=== PATIENT | male | born 1965 | race American Indian/Alaskan Native ===

== ENCOUNTER 2016-05-10 13:26 | Emergency (ER) | payer SELFPAY ==
[2016-05-10] MEDS ORDERED: TORADOL IM ONE (19:12)
[2016-05-10] MEDS ORDERED: COLCRYS PO ONE (19:12)
--- NOTE | 2016-05-10 19:18 | Emergency Department Report ---
ED Extremity Problem HPI - General Chief complaint: Extremity Injury, Lower Stated complaint: LEFT KNEE GOUT Time Seen by Provider: 05/10/16 19:01 Source: patient Mode of arrival: Wheelchair Limitations: No Limitations - History of Present Illness Initial comments: 51 y/o male complain of eating tuna fish and drinking last week .pt state he now having a gout attack . Onset/Timin -: days(s) Location: left, knee History of Same: Yes Severity scale (0 -10): 5 Quality: aching Consistency: intermittent Improves with: nothing Worsens with: weight bearing, walking - Related Data Previous Rx's Medication Instructions Recorded Last Taken Type Colchicine [Colcrys] 0.6 mg PO DAILY #30 tablet 05/10/16 Unknown Rx Ibuprofen [Motrin] 800 mg PO Q8HR PRN #15 tablet 05/10/16 Unknown Rx Allergies Allergy/AdvReac Type Severity Reaction Status Date / Time No Known Allergies Allergy Unverified 05/10/16 13:48 ED Review of Systems ROS: Stated complaint: LEFT KNEE GOUT Other details as noted in HPI Constitutional: denies: chills, fever Eyes: denies: eye pain, eye discharge, vision change ENT: denies: ear pain, throat pain Respiratory: denies: cough, shortness of breath, wheezing Cardiovascular: denies: chest pain, palpitations Endocrine: no symptoms reported Gastrointestinal: denies: abdominal pain, nausea, diarrhea Genitourinary: denies: urgency, dysuria Musculoskeletal: joint swelling. denies: back pain, arthralgia Skin: denies: rash, lesions Neurological: denies: headache, weakness, paresthesias Psychiatric: denies: anxiety, depression Hematological/Lymphatic: denies: easy bleeding, easy bruising ED Past Medical Hx - Past Medical History Additional medical history: Gout - Social History Smoking Status: Never Smoker Substance Use Type: None - Medications Home Medications: Home Medications Medication Instructions Recorded Confirmed Last Taken Type Colchicine [Colcrys] 0.6 mg PO DAILY #30 tablet 05/10/16 Unknown Rx Ibuprofen [Motrin] 800 mg PO Q8HR PRN #15 tablet 05/10/16 Unknown Rx ED Physical Exam - General Limitations: No Limitations General appearance: alert, in no apparent distress - Head Head exam: Present: atraumatic, normocephalic - Eye Eye exam: Present: normal appearance Pupils: Present: normal accommodation - ENT ENT exam: Present: mucous membranes moist - Neck Neck exam: Present: normal inspection - Respiratory Respiratory exam: Present: normal lung sounds bilaterally. Absent: respiratory distress - Cardiovascular Cardiovascular Exam: Present: regular rate, normal rhythm. Absent: systolic murmur, diastolic murmur, rubs, gallop - GI/Abdominal GI/Abdominal exam: Present: soft, normal bowel sounds - Rectal Rectal exam: Present: deferred - Extremities Exam Extremities exam: Present: normal inspection - Expanded Lower Extremity Exam Left Hip exam: Present: normal inspection, full ROM Upper Leg exam: Present: normal inspection, full ROM Knee exam: Present: tenderness, swelling, full knee extension Lower Leg exam: Present: normal inspection, full ROM Ankle exam: Present: normal inspection, full ROM Foot/Toe exam: Present: normal inspection, full ROM Neuro vascular tendon exam: Present: no vascular compromise Gait: Positive: observed and limited by pain - Back Exam Back exam: Present: normal inspection - Neurological Exam Neurological exam: Present: alert, oriented X3 - Psychiatric Psychiatric exam: Present: normal affect, normal mood - Skin Skin exam: Present: warm, dry, intact, normal color. Absent: rash ED Course Vital Signs 05/10/16 13:46 Temperature 98 F Pulse Rate 84 Respiratory 18 Rate Blood Pressure 125/72 O2 Sat by Pulse 100 Oximetry ED Medical Decision Making - Medical Decision Making left knee pain gout attack Critical care attestation.: If time is entered above; I have spent that time in minutes in the direct care of this critically ill patient, excluding procedure time. ED Disposition Clinical Impression: Gout attack Qualifiers: Gout site: knee Gout etiology: unspecified cause Laterality: left Qualified Code(s): M10.9 - Gout, unspecified Disposition: DISCHARGED TO HOME OR SELFCARE Is pt being admited?: No Does the pt Need Aspirin: No Condition: Stable Instructions: Acute Gouty Arthritis (ED) Prescriptions: Colchicine [Colcrys] 0.6 mg PO DAILY #30 tablet Ibuprofen [Motrin] 800 mg PO Q8HR PRN #15 tablet PRN Reason: Pain
[2016-05-10 19:56] VITALS: BP 122/74
== END 2016-05-10 19:24 | disposition home or self-care (01) ==
LOC: ED 13:26
DX: M10.9 Gout, unspecified (principal)
CPT/HCPCS: 96372; 99282; J1885

== ENCOUNTER 2016-12-21 19:43 | Emergency (ER) | payer BC ==
[2016-12-22] MEDS ORDERED: DECADRON IM ONE (02:08)
--- NOTE | 2016-12-22 02:33 | XRay Report ---
FINAL REPORT PROCEDURE: XR FOOT 3+V RT TECHNIQUE: RIGHT foot radiographs, AP, lateral, and oblique views. CPT 78001 HISTORY: swelling pain RT FOOT COMPARISON: No prior studies are available for comparison. FINDINGS: Fracture (s) and/or Dislocation(s): None . Alignment: Normal . Joint space(s): Mild narrowing of the joint spaces. Mild spur formation off the osseous structures including the tarsal bones.. Soft tissues: Slight diffuse soft tissue swelling. Bone mineralization: Normal . Foreign bodies: None . Calcaneal spurring: None . IMPRESSION: No evidence of an acute fracture or dislocation. Mild arthritis. Mild diffuse soft tissue swelling..
--- NOTE | 2016-12-22 03:10 | Emergency Department Report ---
HPI - General Chief Complaint: Extremity Problem,Nontraumatic Time Seen by Provider: 12/22/16 02:03 - [facility] HPI: This is a 51-year-old male presents to ED stating he has a gout flareup. Patient states this incident earlier this year. Left knee. Patient states he' s had right ankle and foot pain and swelling for the past 2 days. Patient describes pain as throbbing in nature localized to his foot he describes pain as a 10 out of 10. He denies any trauma injury to the foot or touched her foot. ED Past Medical Hx - Past Medical History Previous Medical History?: Yes Additional medical history: Gout - Surgical History Past Surgical History?: No - Social History Smoking Status: Never Smoker Substance Use Type: None - Medications Home Medications: Home Medications Medication Instructions Recorded Confirmed Last Taken Type Colchicine [Colcrys] 0.6 mg PO DAILY #30 tablet 12/22/16 Unknown Rx Ibuprofen [Motrin 800 MG tab] 800 mg PO Q8HR PRN #30 tablet 12/22/16 Unknown Rx ED Review of Systems ROS: Stated complaint: SWOLLEN ANKLE Other details as noted in HPI Constitutional: denies: chills, fever Eyes: denies: eye pain, eye discharge, vision change ENT: denies: ear pain, throat pain Respiratory: denies: cough, shortness of breath, wheezing Cardiovascular: denies: chest pain, palpitations Endocrine: no symptoms reported Gastrointestinal: denies: abdominal pain, nausea, diarrhea Genitourinary: denies: urgency, dysuria Musculoskeletal: denies: back pain, joint swelling, arthralgia Skin: denies: rash, lesions Neurological: denies: headache, weakness, paresthesias Psychiatric: denies: anxiety, depression Hematological/Lymphatic: denies: easy bleeding, easy bruising Physical Exam - Physical Exam Vital Signs: Vital Signs 12/21/16 20:16 Temperature 97.8 F Pulse Rate 82 Respiratory 18 Rate Blood Pressure 121/74 O2 Sat by Pulse 99 Oximetry Physical Exam: GENERAL: Alert and oriented x3, no apparent distress, Normal Gait, atraumatic. HEAD: Head is normocephalic and a-traumatic. LUNGS: Symetrical with respiration, No wheezing, no rales or crackles, CTAB. HEART: S1, S2 present, regular rate and rhythm without murmur, no rubs, no gallops. Non tender to palpation EXTREMITIES/MUSCULOSKELETAL: No cyanosis, clubbing, rash, lesions or edema. Full ROM bilaterally. UE/LE Pulses 2+ bilaterally. LE and UE 5+ strength bilaterally, right foot swollen from an cold down, warm, erythematous, severely tender to palpation. Patient cannot bear weight. NEUROLOGIC: The patient is cooperative with no focal neurologic deficits. Cranial nerves II through XII are grossly intact. Normal speech. PSYCHIATRIC: Mood is congruent with affect, denies suicidal or homicidal ideations. SKIN: Warm and dry, No lesions, No ulceration or induration present. ED Course Vital Signs 12/21/16 20:16 Temperature 97.8 F Pulse Rate 82 Respiratory 18 Rate Blood Pressure 121/74 O2 Sat by Pulse 99 Oximetry ED Medical Decision Making - Radiology Data Radiology results: report reviewed, image reviewed INAL REPORT PROCEDURE: XR FOOT 3+V RT TECHNIQUE: RIGHT foot radiographs, AP, lateral, and oblique views. CPT 17082 HISTORY: swelling pain RT FOOT COMPARISON: No prior studies are available for comparison. FINDINGS: Fracture (s) and/or Dislocation(s): None . Alignment: Normal . Joint space(s): Mild narrowing of the joint spaces. Mild spur formation off the osseous structures including the tarsal bones.. Soft tissues: Slight diffuse soft tissue swelling. Bone mineralization: Normal . Foreign bodies: None . Calcaneal spurring: None . IMPRESSION: No evidence of an acute fracture or dislocation. Mild arthritis. Mild diffuse soft tissue swelling.. Transcribed By: [facility] Dictated By: LUI MCLEAN MD Electronically Authenticated By: LUI MCLEAN MD Signed Date/Time: 12/22/16227 - Medical Decision Making 51-year-old male presents with cardiac Real of the foot ED course: Patient received 10 mg of Decadron, uric acid obtained earache as stated within normal limits. X-ray of the foot obtained. X-ray of the foot shows above Discussed patient follow up with primary care physician to take medication as prescribed Discussed if worsening symptoms return to ED. Vital signs are normal patient is in no acute distress Critical care attestation.: If time is entered above; I have spent that time in minutes in the direct care of this critically ill patient, excluding procedure time. 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
[2016-12-22 04:07] VITALS: BP 126/70
== END 2016-12-22 04:00 | disposition home or self-care (01) ==
LOC: ED 19:43
DX: M79.89 Other specified soft tissue disorders (principal); M25.571 Pain in right ankle and joints of right foot; M19.90 Unspecified osteoarthritis, unspecified site
CPT/HCPCS: 36415; 73630; 84550; 96372; 99283; J1100